=== PATIENT | female | born 1990 | race Two or more races ===

== ENCOUNTER 2023-03-09 08:28 | Inpatient (IN) | payer OTHER ==
[~2023-03-09] VITALS: Ht 152.4 cm; Wt 80.7 kg
[2023-03-10] MEDS ORDERED: ATARAX10 MG PO (08:15)
[2023-03-10] MEDS ORDERED: ZEGERID 40 MG1 EACH PO (08:15)
[2023-03-10] MEDS ORDERED: ZYRTEC10 M3 PO (08:16)
== END 2023-03-16 17:51 | disposition home or self-care (01) | DRG 330 ==
LOC: SURH 03-14 07:00 → O/R 03-14 10:08 → SURH 03-14 10:45 → OB/GYN 03-14 20:37
PROVIDERS: ADMIT Colon & Rectal Surgery; ATTEND Colon & Rectal Surgery
PROC: 0DBP4ZZ Excision of Rectum, Percutaneous Endoscopic Approach (ICD-10-PCS; 2023-03-14)
PROC: 0DTN4ZZ Resection of Sigmoid Colon, Percutaneous Endoscopic Approach (ICD-10-PCS; 2023-03-14)
PROC: 0DJD8ZZ Inspection of Lower Intestinal Tract, Via Natural or Artificial Opening Endoscopic (ICD-10-PCS; 2023-03-14)
PROC: 8E0W4CZ Robotic Assisted Procedure of Trunk Region, Percutaneous Endoscopic Approach (ICD-10-PCS; 2023-03-14)
PROC: 0DQN4ZZ Repair Sigmoid Colon, Percutaneous Endoscopic Approach (ICD-10-PCS; principal; 2023-03-14 07:00)
DX: K57.32 Diverticulitis of large intestine without perforation or abscess without bleeding (principal); K92.1 Melena; N73.6 Female pelvic peritoneal adhesions (postinfective); N99.4 Postprocedural pelvic peritoneal adhesions
CPT/HCPCS: 44213; 44207; S2900